=== PATIENT | female | born 1965 | race African-American/Black ===

== ENCOUNTER 2019-04-29 00:34 | Emergency (ER) | payer MEDICAID ==
[~2019-04-29] VITALS: Ht 162.6 cm; Wt 54.0 kg
[2019-04-29] MEDS ORDERED: ONDANSETRON 4MG ODT PO ONE (03:30)
[2019-04-29] MEDS ORDERED: GABAPENTIN 400MG CAPSULE PO ONE (03:30)
[2019-04-29 03:52] LABS: CHLORIDE 100 mEq/L (98-107)
[2019-04-29 07:54] LABS: *AMPHETAMINES SCREEN URINE NEGATIVE (NEGATIVE); *BARBITURATES SCREEN URINE NEGATIVE (NEGATIVE)
[2019-04-29 07:55] LABS: *BENZODIAZEPINES SCREEN URINE NEGATIVE (NEGATIVE); *COCAINE SCREEN URINE PRESUMTIVE POSITIVE (NEGATIVE); CANNABINOID URINE SCREEN PRESUMTIVE POSITIVE (NEGATIVE); METHADONE URINE SCREEN NEGATIVE (NEGATIVE); OPIATES URINE SCREEN NEGATIVE (NEGATIVE); PHENCYCLIDINE URINE SCREEN NEGATIVE (NEGATIVE)
[2019-04-29] MEDS ORDERED: ACETAMINOPHEN 325MG TABLET PO ONE (13:15)
[2019-04-29 16:47] VITALS: BP 126/74
== END 2019-04-29 17:03 | disposition home or self-care (01) ==
LOC: ER 00:34
DX: G89.29 Other chronic pain (principal); M79.7 Fibromyalgia; Z59.0 Homelessness; F41.9 Anxiety disorder, unspecified; F32.9 Major depressive disorder, single episode, unspecified; F17.210 Nicotine dependence, cigarettes, uncomplicated; Z98.51 Tubal ligation status
CPT/HCPCS: 36415; 80048; 80305; 99283; Q0162